=== PATIENT | male | born 1985 | race Caucasian/White ===

== ENCOUNTER 2023-11-28 18:53 | Emergency (ER) | payer BC ==
--- NOTE | 2023-11-28 19:44 | ED Physician Documentation ---
PD HPI CHEST PAIN - Stated complaint Stated Complaint: CHEST PX/LIGHT HEAD - Chief complaint Chief Complaint: General - History obtained from History obtained from: Patient - Additional information Additional information: HPI from patient. Patient says he had an upper respiratory infection a few weeks ago but did not seek treatment. The symptoms that constituted his URI have resolved, but, since then, he has had episodic fatigue over the past week along with nausea but no vomiting. Over this past week, at times he is completely asymptomatic. Today at approximately 4 PM while at home undertaking light activity, the patient had sudden onset of chest pain across his anterior chest associated with lightheadedness. No apparent exacerbating or ameliorating factors, and the chest pain resolved approximately within 30 minutes of onset; he is currently chest pain-free. Similarly, the lightheadedness resolved within minutes of onset and has also not reoccurred since then. He denies cough, fever, leg swelling, shortness of breath.No immediate family history of heart attack/stroke. Review of Systems Constitutional: reports: Fatigue. denies: Fever, Chills, Sweats Cardiac: reports: Chest pain / pressure. denies: Palpitations, Pedal edema, Calf pain Respiratory: reports: Reviewed and negative GI: reports: Nausea, Diarrhea. denies: Abdominal Pain, Vomiting, Constipation Musculoskeletal: denies: Extremity swelling Neurologic: denies: Generalized weakness, Focal weakness, Numbness, Headache PD PAST MEDICAL HISTORY - Past Medical History Past Medical History: No - Past Surgical History Past Surgical History: No - Allergies Allergies/Adverse Reactions: Allergies Allergy/AdvReac Type Severity Reaction Status Date / Time No Known Drug Allergies Allergy Verified 11/28/23 18:57 - Social History Does the pt smoke?: No Smoking Status: Never smoker Does the pt drink ETOH?: Yes Does the pt have substance abuse?: No - Immunizations Immunizations are current?: Yes - POLST Patient has POLST: No PD ED PE NORMAL - Vitals Vital signs reviewed: Yes - General General: Alert and oriented X 3, No acute distress, Well developed/nourished - Neck Neck: Supple, no meningeal sign - Cardiac Cardiac: RRR, No murmur, No gallop, No rub - Respiratory Respiratory: No respiratory distress, Clear bilaterally - Abdomen Abdomen: Soft, Non tender - Extremities Extremities: No edema Results - Vitals Vitals: Oxygen O2 Source Room air - EKG (time done) No standard instances EKG releavant findings:: EKG personally interpreted by author of this note. Relevant findings are: Rate: Rate (enter#) (96) Rhythm: NSR [place]: RAD Intervals: Normal MT QRS: Normal Ischemia: Normal ST segments - Labs Labs: Laboratory Tests 11/28/23 11/28/23 20:23 20:23 WBC 8.5 RBC 5.09 Hgb 15.1 Hct 45.2 MCV 88.8 MCH 29.7 MCHC 33.4 RDW 12.4 Plt Count 222 MPV 11.5 H Neut # (Auto) 7.3 H Lymph # (Auto) 0.7 L [place] # (Auto) 0.4 Eos # (Auto) 0.0 Baso # (Auto) 0.0 Absolute Nucleated RBC 0.00 Nucleated RBC % 0.0 Sodium 135 Potassium 4.2 Chloride 102 Carbon Dioxide 28 Anion Gap 5.0 L BUN 13 Creatinine 1.3 Estimated GFR (MDRD) 62 L Glucose 96 Calcium 8.9 - Rads (name of study) chest xray Relevant Findings:: Prelim report reviewed, See rad report PD Medical Decision Making - ED course Complexity details: reviewed results, re-evaluated patient, considered differential, d/w patient ED course: Unremarkable CBC, basic metabolic profile. Normal chest x-ray EKG. Etiology of symptoms not apparent at this time. Results discussed with patient, return precautions reviewed. Advised to seek follow-up with his primary care provider by the end of this week unless the symptoms completely resolve. Departure - Departure Disposition: 01 Home, Self Care Clinical Impression: Chest pain Qualifiers: Chest pain type: unspecified Qualified Code(s): R07.9 - Chest pain, unspecified Condition: Good Instructions: ED Chest Pain Atypical Unkn Cause Comments: There were no concerning nor diagnostic findings on today's tests, include the EKG, chest x-ray, and blood tests. The cause of your symptoms is not apparent at this time. Contact your primary care provider in the office when they are next open to arrange for the next available appointment for follow- up/reevaluation. Discharge Date/Time: 11/28/23 21:16
[2023-11-28 20:28] LABS: BASOPHILS % (AUTO) 0.4 %; EOSINOPHILS % (AUTO) 0.5 %; HCT - HEMATOCRIT 45.2 % (42.0-52.0); HGB - HEMOGLOBIN 15.1 g/dL (14.0-18.0); LYMPHOCYTES # (AUTO) 0.7 10^3/uL (1.5-3.5); LYMPHOCYTES % (AUTO) 7.7 %; MEAN CORPUSCULAR HEMOGLOBIN 29.7 pg (27.0-31.0); MEAN CORPUSCULAR HGB CONC 33.4 g/dL (32.0-36.0); MEAN CORPUSCULAR VOLUME 88.8 fL (80.0-94.0); MEAN PLATELET VOLUME 11.5 fL (7.4-11.4); MONOCYTES # (AUTO) 0.4 10^3/uL (0.0-1.0); MONOCYTES % (AUTO) 4.8 %; NEUTROPHILS # (AUTO) 7.3 10^3/uL (1.5-6.6); NEUTROPHILS % (AUTO) 86.2 %; PLT - PLATELET COUNT 222 10^3/uL (130-450); RED BLOOD COUNT 5.09 10^6/uL (4.70-6.10); RED CELL DISTRIBUTION WIDTH 12.4 % (12.0-15.0); WHITE BLOOD COUNT 8.5 x10^3/uL (4.8-10.8)
[2023-11-28 20:40] LABS: CALCIUM 8.9 mg/dL (8.5-10.3); CREATININE 1.3 mg/dL (0.6-1.3); POTASSIUM 4.2 mmol/L (3.5-4.5)
--- NOTE | 2023-11-28 21:04 | XRAY Report ---
PROCEDURE: Chest 2V INDICATIONS: chest pain TECHNIQUE: 2 views of the chest were acquired. COMPARISON: None. FINDINGS: Surgical changes and devices: None. Lungs and pleura: No pleural effusions or pneumothorax. Lungs are clear. Mediastinum: Mediastinal contours appear normal. Heart size is normal. Bones and chest wall: No suspicious bony lesions. Overlying soft tissues appear unremarkable. IMPRESSION: No acute cardiopulmonary process. Reviewed by: Mikey Colindres MD on 11/28/2023 9:03 PM PDT Approved by: Mikey Colindres MD on 11/28/2023 9:03 PM PDT Station ID: [id number]
[2023-11-28 21:25] VITALS: BP 137/68; O2SAT 99
== END 2023-11-28 21:16 | disposition home or self-care (01) ==
LOC: ED 18:53
DX: R07.9 Chest pain, unspecified (principal)
CPT/HCPCS: 36415; 80048; 85025; 93005; 99283; 99284